=== PATIENT | male | born 1940 | race African-American/Black ===

== ENCOUNTER 2018-08-21 18:40 | Inpatient (IN) | payer OTHER ==
[2018-08-21 19:26] LABS: Absolute Lymphocytes (CBC) 2.1 K/uL (0.7-4.9); Absolute Monocytes 0.6 K/uL (0.1-1.3); Absolute Neutrophil 5.6 K/uL (1.8-8.0); Basophils % 0.4 % (0-1.3); Hematocrit 38.2 % (39.6-49.0); Lymphocytes % 24.8 % (15.3-44.8); MPV 7.7 fL (7.6-11.3); Monocytes % 7.1 % (3.3-12.3); RBC Red Blood Cell Count 4.33 M/uL (4.33-5.43)
[2018-08-21 19:45] LABS: ALT/SGPT 19 U/L (12-78); AST/SGOT 18 U/L (15-37); Albumin 3.2 g/dL (3.4-5.0); Alkaline Phosphatase 70 U/L (45-117); BUN Blood Urea Nitrogen 14 mg/dL (7-18); Bicarbonate 28 mmol/L (21-32); Bilirubin Direct < 0.1 mg/dL (0-0.2); Bilirubin Total 0.2 mg/dL (0.2-1.0); Glucose Level 73 mg/dL (74-106); Magnesium 2.6 mg/dL (1.8-2.4); NT PRO-BNP 53 pg/mL (<450); Potassium 3.9 mmol/L (3.5-5.1); Protein, Total 7.3 g/dL (6.4-8.2); Sodium Level 145 mmol/L (136-145); Troponin (Emerg Dept Use Only) < 0.02 ng/mL (0.0-0.045)
--- NOTE | 2018-08-21 19:56 | RAD REPORT ---
EXAM DESCRIPTION: Mandie Single View08/21/2018 7:15 pm CLINICAL HISTORY: Chest pain COMPARISON: 2009 FINDINGS: A few areas of subsegmental atelectasis are present within the lung bases. Upper lobes ap pear clear The heart is normal size
[2018-08-21] MEDS ORDERED: NA CHLORIDE 0.9% 500 ML ONE ×2 (21:05→22:24)
[2018-08-21 23:19] LABS: Amylase Level 125 U/L (25-115); Lipase 1150 U/L (73-393); Troponin (Emerg Dept Use Only) < 0.02 ng/mL (0.0-0.045)
--- NOTE | 2018-08-22 00:10 | ER ---
Nurse's Notes [facility] Name: Carloz Hughes Age: 78 yrs Sex: Male : 1940 Arrival Date: 08/21/2018 Time: 18:44 Bed 25 Private MD: Diagnosis: Acute pancreatitis Presentation: 08/21 18:47 Presenting complaint: Patient states: epigastric pain after eating that began 3-4 days aa5 ago. Pt states "I've been taking milk of magnesia and it helps for a few hours but the pain comes back". Transition of care: patient was not received from another setting of care. Onset of symptoms was August 2018. Risk Assessment: Do you want to hurt yourself or someone else? Patient reports no desire to harm self or others. Initial Sepsis Screen: Does the patient meet any 2 criteria? No. Patient's initial sepsis screen is negative. Does the patient have a suspected source of infection? No. Patient's initial sepsis screen is negative. Care prior to arrival: None. 18:47 Method Of Arrival: Ambulatory aa5 18:47 Acuity: EWA 3 aa5 Historical: - Allergies: 18:53 NSAIDS; aa5 - Home Meds: 18:53 lisinopril-hydrochlorothiazide oral oral [Active]; insulin [Active]; aa5 - PMHx: 18:53 Diabetes - IDDM; Hypertension; aa5 - PSHx: 18:53 Cholecystectomy; aa5 - Immunization history:: Adult Immunizations unknown. - Social history:: Smoking status: Patient/guardian denies using tobacco. - Ebola Screening: : No symptoms or risks identified at this time. Screenin:21 Abuse screen: Denies threats or abuse. Denies injuries from another. Nutritional mg2 screening: No deficits noted. Tuberculosis screening: No symptoms or risk factors identified. Fall Risk IV access (20 points). Assessment: 19:20 General: Appears in no apparent distress. comfortable, Behavior is calm, cooperative, ca1 appropriate for age. Pain: Complains of pain in epigastric area Pain does not radiate. Pain currently is 1 out of 10 on a pain scale. at worst was 3 out of 10 on a pain scale. Quality of pain is described as throbbing, Pain began 2-3 days ago. Is intermittent. Pain: Aggravated by eating. Neuro: Level of Consciousness is awake, alert, obeys commands, Oriented to person, place, time, situation. Cardiovascular: Heart tones S1 S2 present Capillary refill < 3 seconds Patient's skin is warm and dry. Rhythm is sinus rhythm. Respiratory: Airway is patent Respiratory effort is even, unlabored, Respiratory pattern is regular, symmetrical, Breath sounds are clear bilaterally. GI: Abdomen is round non-distended, Bowel sounds present X 4 quads. Abd is soft and non tender X 4 quads. : No deficits noted. No signs and/or symptoms were reported regarding the genitourinary system. EENT: No deficits noted. No signs and/or symptoms were reported regarding the EENT system. Derm: Skin is intact, is healthy with good turgor, Skin is pink, warm \\T\\ dry. Musculoskeletal: Circulation, motion, and sensation intact. Capillary refill < 3 seconds, Range of motion: intact in all extremities. 20:25 Reassessment: Patient appears in no apparent distress at this time. Patient and/or ca1 family updated on plan of care and expected duration. Pain level reassessed. Patient is alert, oriented x 3, equal unlabored respirations, skin warm/dry/pink. 21:30 Tenecteplase (TNKase) screening: Indications for treatment:. Reassessment: Patient ca1 appears in no apparent distress at this time. Patient and/or family updated on plan of care and expected duration. Pain level reassessed. Patient is alert, oriented x 3, equal unlabored respirations, skin warm/dry/pink. for repeat Trop at 2200. 22:35 Reassessment: Patient appears in no apparent distress at this time. Patient is alert, ca1 oriented x 3, equal unlabored respirations, skin warm/dry/pink. 23:45 Reassessment: Patient appears in no apparent distress at this time. Patient is alert, ca1 oriented x 3, equal unlabored respirations, skin warm/dry/pink. Pt instructed on NPO. Verbalized understanding of instructions. 08/22 00:35 Reassessment: Patient appears in no apparent distress at this time. Patient is alert, ca1 oriented x 3, equal unlabored respirations, skin warm/dry/pink. Awaiting Room Assignment. 00:43 Reassessment: Called 2nd floor for report. Nurse in pt's room. Will call back. ca1 00:51 Reassessment: Pt on phone. NO C/O of pain/N/V. VS stable. A and Ox4. ca1 Vital Signs: 08/21 18:53 BP 150 / 77; Pulse 83; Resp 16 S; Temp 97.4(TE); Pulse Ox 99% on R/A; Weight 114.31 kg aa5 (R); Height 5 ft. 7 in. (170.18 cm) (R); Pain 03/19; 19:20 BP 123 / 62 RA (auto/lg); Pulse 71; Resp 18 S; Temp 99.0; Pulse Ox 96% on R/A; Pain jp3 03/19; 20:25 BP 116 / 65; Pulse 65; Resp 20; Temp 98(O); Pulse Ox 97% on R/A; ca1 21:30 BP 125 / 68; Pulse 63; Resp 16 S; Pulse Ox 97% on R/A; ca1 22:35 BP 125 / 69; Pulse 69; Resp 16; Temp 98(O); Pulse Ox 99% on R/A; ca1 23:46 BP 134 / 79; Pulse 72; Resp 16 S; Temp 98(O); Pulse Ox 98% on R/A; ca1 08/22 00:35 BP 149 / 78; Pulse 65; Resp 16 S; Temp 98(O); Pulse Ox 98% on R/A; ca1 00:51 BP 128 / 73; Pulse 65; Resp 19; Temp 98(O); Pulse Ox 100% on R/A; ca1 08/21 18:53 Body Mass Index 39.47 (114.31 kg, 170.18 cm) aa5 ED Course: 08/21 18:44 Patient arrived in ED. mr 18:47 Arm band placed on. aa5 18:50 Triage completed. aa5 19:15 EKG done, by ED staff, reviewed by Claude Herrera MD. jp3 19:16 XRAY Chest (1 view) In Process Unspecified. EDMS 19:20 Placed in gown. Bed in low position. Call light in reach. Side rails up X 1. Side rails jp3 up X2. 19:20 traffic monitor specialist on. Pulse ox on. NIBP on. jp3 19:21 Patient maintains SpO2 saturation greater than 95% on room air. jp3 19:21 No provider procedures requiring assistance completed. Inserted saline lock: 20 gauge mg2 in left forearm, using aseptic technique. Blood collected. Patient maintains SpO2 saturation greater than 95% on room air. 19:24 Ana Gonzalez, RN is Primary Nurse. ca1 19:24 Troponin (emerg Dept Use Only) Sent. jp3 19:24 PT-INR Sent. jp3 19:25 NT PRO-BNP Sent. jp3 19:25 Magnesium Sent. jp3 19:25 LFT's Sent. jp3 19:25 CBC with Diff Sent. jp3 19:25 Basic Metabolic Panel Sent. jp3 19:25 CBC with Automated Diff Sent. jp3 19:25 Basic Metabolic Panel Sent. jp3 20:18 [facility]C [facility]. snw 20:18 Claude Herrera MD is Attending Physician. snw 21:07 CT Stone Protocol In Process Unspecified. EDMS 22:15 Repeat lab(s) drawn. by wa, sent to lab. jp3 22:20 Amylase, Serum Sent. jp3 22:20 Lipase Sent. jp3 22:20 Troponin (emerg Dept Use Only) Sent. jp3 23:47 Ana Gonzalez, RN is Primary Nurse. ca1 08/22 00:08 Sendy Lew MD is Hospitalizing Provider. snw 00:36 Patient admitted, IV remains in place. ca1 Administered Medications: 08/21 21:07 Drug: NS 0.9% 500 ml Route: IV; Rate: bolus; Site: left forearm; mg2 22:07 Follow up: Response: No adverse reaction; IV Status: Completed infusion ca1 22:10 Drug: NS 0.9% 500 ml Volume: 500 ml; Route: IV; Rate: 1 bolus; Site: left forearm; ca1 23:54 Follow up: Response: No adverse reaction; IV Status: Completed infusion ca1 Outcome: 08/22 00:09 Decision to Hospitalize by Provider. snw 00:50 Admitted to Med/surg accompanied by nurse, via wheelchair, room 223, with chart, Report ca1 called to Mary Jane Caldwell RN 00:50 Condition: stable 00:50 Instructed on the need for admit. 01:00 Patient left the ED. ca1 Signatures: Dispatcher [employer] EDMS Gem Loza FNP-C COMPATIBILITY TEST ENGINEER-Bree Laura Amaro Audri RN RN aa5 Cruz Machuca RN RN mg2 Deacon Kathleen jp3 Ana Gonzalez RN RN ca1 Corrections: (The following items were deleted from the chart) 00:41 08/21 23:45 Reassessment: Patient appears in no apparent distress at this time. Patient ca1 is alert, oriented x 3, equal unlabored respirations, skin warm/dry/pink. ca1
--- NOTE | 2018-08-22 00:10 | EDPHYS ---
Physician Documentation [facility] Name: Carloz Hughes Age: 78 yrs Sex: Male : 1940 Arrival Date: 08/21/2018 Time: 18:44 Bed 25 Private MD: ED Physician Claude Herrera HPI: 08/21 22:16 This 78 yrs old Black Male presents to ER via Ambulatory with complaints of Chest Pain. snw 22:16 The patient presents with abdominal pain in the epigastric area. Onset: The snw symptoms/episode began/occurred suddenly. The symptoms do not radiate. Associated signs and symptoms: Pertinent positives: "indigestion" alternating constipation and diarrhea. The symptoms are described as crampy. Severity of pain: At its worst the pain was moderate. The patient has not experienced similar symptoms in the past. The patient has not recently seen a physician. Historical: - Allergies: 18:53 NSAIDS; aa5 - Home Meds: 18:53 lisinopril-hydrochlorothiazide oral oral [Active]; insulin [Active]; aa5 - PMHx: 18:53 Diabetes - IDDM; Hypertension; aa5 - PSHx: 18:53 Cholecystectomy; aa5 - Immunization history:: Adult Immunizations unknown. - Social history:: Smoking status: Patient/guardian denies using tobacco. - Ebola Screening: : No symptoms or risks identified at this time. ROS: 22:15 Constitutional: Negative for fever, chills, and weight loss, Eyes: Negative for injury, snw pain, redness, and discharge, ENT: Negative for injury, pain, and discharge, Neck: Negative for injury, pain, and swelling, Cardiovascular: Negative for chest pain, palpitations, and edema, Respiratory: Negative for shortness of breath, cough, wheezing, and pleuritic chest pain, Back: Negative for injury and pain, : Negative for injury, bleeding, discharge, and swelling, MS/Extremity: Negative for injury and deformity, Skin: Negative for injury, rash, and discoloration, Neuro: Negative for headache, weakness, numbness, tingling, and seizure. 22:15 Abdomen/GI: Positive for abdominal pain, diarrhea, constipation, of the epigastric area, Negative for nausea, vomiting, dysphagia, hematemesis, black/tarry stool, rectal bleeding. Exam: 22:15 Constitutional: This is a well developed, well nourished patient who is awake, alert, snw and in no acute distress. Head/Face: Normocephalic, atraumatic. Eyes: Pupils equal round and reactive to light, extra-ocular motions intact. Lids and lashes normal. Conjunctiva and sclera are non-icteric and not injected. Cornea within normal limits. Periorbital areas with no swelling, redness, or edema. ENT: Nares patent. No nasal discharge, no septal abnormalities noted. Tympanic membranes are normal and external auditory canals are clear. Oropharynx with no redness, swelling, or masses, exudates, or evidence of obstruction, uvula midline. Mucous membranes moist. Neck: Trachea midline, no thyromegaly or masses palpated, and no cervical lymphadenopathy. Supple, full range of motion without nuchal rigidity, or vertebral point tenderness. No Meningismus. Chest/axilla: Normal chest wall appearance and motion. Nontender with no deformity. No lesions are appreciated. Cardiovascular: Regular rate and rhythm with a normal S1 and S2. No gallops, murmurs, or rubs. Normal PMI, no JVD. No pulse deficits. Respiratory: Lungs have equal breath sounds bilaterally, clear to auscultation and percussion. No rales, rhonchi or wheezes noted. No increased work of breathing, no retractions or nasal flaring. Back: No spinal tenderness. No costovertebral tenderness. Full range of motion. Skin: Warm, dry with normal turgor. Normal color with no rashes, no lesions, and no evidence of cellulitis. MS/ Extremity: Pulses equal, no cyanosis. Neurovascular intact. Full, normal range of motion. Neuro: Awake and alert, GCS 15, oriented to person, place, time, and situation. Cranial nerves II-XII grossly intact. Motor strength 5/5 in all extremities. Sensory grossly intact. Cerebellar exam normal. Normal gait. Psych: Awake, alert, with orientation to person, place and time. Behavior, mood, and affect are within normal limits. 22:15 Abdomen/GI: Inspection: abdomen appears normal, Bowel sounds: normal, in all quadrants, Palpation: abdomen is soft and non-tender. Vital Signs: 18:53 BP 150 / 77; Pulse 83; Resp 16 S; Temp 97.4(TE); Pulse Ox 99% on R/A; Weight 114.31 kg aa5 (R); Height 5 ft. 7 in. (170.18 cm) (R); Pain /; 19:20 BP 123 / 62 RA (auto/lg); Pulse 71; Resp 18 S; Temp 99.0; Pulse Ox 96% on R/A; Pain jp3 03/19; 20:25 BP 116 / 65; Pulse 65; Resp 20; Temp 98(O); Pulse Ox 97% on R/A; ca1 21:30 BP 125 / 68; Pulse 63; Resp 16 S; Pulse Ox 97% on R/A; ca1 22:35 BP 125 / 69; Pulse 69; Resp 16; Temp 98(O); Pulse Ox 99% on R/A; ca1 23:46 BP 134 / 79; Pulse 72; Resp 16 S; Temp 98(O); Pulse Ox 98% on R/A; ca1 08/22 00:35 BP 149 / 78; Pulse 65; Resp 16 S; Temp 98(O); Pulse Ox 98% on R/A; ca1 00:51 BP 128 / 73; Pulse 65; Resp 19; Temp 98(O); Pulse Ox 100% on R/A; ca1 08/21 18:53 Body Mass Index 39.47 (114.31 kg, 170.18 cm) aa5 MDM: 08/21 20:19 Patient medically screened. [facility] 08/22 00:09 Data reviewed: vital signs, nurses notes. Data interpreted: Pulse oximetry: on room air snw is 98 %. Interpretation: normal. Counseling: I had a detailed discussion with the patient and/or guardian regarding: the historical points, exam findings, and any diagnostic results supporting the discharge/admit diagnosis, lab results, radiology results, the need for further work-up and treatment in the hospital. Physician consultation: Sendy Lew MD was called at 23:00, was contacted at 23:00, regarding admission, to the telemetry unit. 08/21 18:56 Order name: Basic Metabolic Panel snw 08/21 18:56 Order name: CBC with Diff snw 08/21 18:56 Order name: LFT's; Complete Time: 20:20 snw 08/21 18:56 Order name: Magnesium; Complete Time: 20:20 snw 08/21 18:56 Order name: NT PRO-BNP; Complete Time: 20:20 snw 08/21 18:56 Order name: PT-INR; Complete Time: 20:20 snw 08/21 18:56 Order name: Troponin (emerg Dept Use Only); Complete Time: 20:20 snw 08/21 18:56 Order name: XRAY Chest (1 view); Complete Time: 20:20 snw 08/21 18:57 Order name: Basic Metabolic Panel; Complete Time: 20:20 EDMS 08/21 18:57 Order name: CBC with Automated Diff; Complete Time: 20:20 EDMS 08/21 20:37 Order name: CT Stone Protocol snw 08/21 22:04 Order name: Lipase; Complete Time: 23:25 snw 08/21 22:04 Order name: Troponin (emerg Dept Use Only); Complete Time: 23:25 snw 08/21 22:04 Order name: Amylase, Serum; Complete Time: 23:25 snw 08/21 18:56 Order name: EKG; Complete Time: 18:59 w 08/21 18:56 Order name: Cardiac monitoring; Complete Time: 19:23 snw 08/21 18:56 Order name: EKG - Nurse/Tech; Complete Time: 19:23 w 08/21 18:56 Order name: IV Saline Lock; Complete Time: 19:23 w 08/21 18:56 Order name: Labs collected and sent; Complete Time: 19:23 snw 08/21 18:56 Order name: O2 Per Protocol; Complete Time: 19:23 w 08/21 18:56 Order name: O2 Sat Monitoring; Complete Time: 19:23 snw 08/21 20:38 Order name: Repeat Cardiac Enzymes at: 2200; Complete Time: 22:20 snw 08/21 22:06 Order name: EKG Strip; Complete Time: 22:26 snw Administered Medications: 08/21 21:07 Drug: NS 0.9% 500 ml Route: IV; Rate: bolus; Site: left forearm; mg2 22:07 Follow up: Response: No adverse reaction; IV Status: Completed infusion ca1 22:10 Drug: NS 0.9% 500 ml Volume: 500 ml; Route: IV; Rate: 1 bolus; Site: left forearm; ca1 23:54 Follow up: Response: No adverse reaction; IV Status: Completed infusion ca1 Disposition: 08/22/18 00:09 Hospitalization ordered by Sendy Lew for Inpatient Admission. Preliminary diagnosis is Acute pancreatitis. - Bed requested for Telemetry/MedSurg (Inpatient). - Status is Inpatient Admission. ca1 - Condition is Stable. - Problem is new. - Symptoms are unchanged. UTI on Admission? No Addendum: 08/24/2018 08:24 Co-signature as Attending Physician, Claude Herrera MD I agree with the assessment and c yun plan of care. Signatures: Dispatcher [employer] EDNV Claude Herrera MD MD cha Therrien, Shelly, DRUG ABUSE WORKER-C DRUG ABUSE WORKER-Csnw Shagufta Mills, RN RN aa5 Fabiola Funez, RN RN cg Cruz Machuca, RN RN mg2 Ana Gonzalez RN RN ca1 Corrections: (The following items were deleted from the chart) 08/21 22:16 22:15 Abdomen/GI: Positive for abdominal pain, diarrhea, constipation, Negative for snw nausea, vomiting, dysphagia, hematemesis, black/tarry stool, rectal bleeding, snw 08/22 00:34 00:09 Hospitalization Ordered by Sendy Lew MD for Inpatient Admission. Preliminary cg diagnosis is Acute pancreatitis. Bed requested for Telemetry/MedSurg (Inpatient). Status is Inpatient Admission. Condition is Stable. Problem is new. Symptoms are unchanged. UTI on Admission? No. snw 01:00 00:34 08/22/2018 00:09 Hospitalization Ordered by Senyd Lew MD for Inpatient ca1 Admission. Preliminary diagnosis is Acute pancreatitis. Bed requested for Telemetry/MedSurg (Inpatient). Status is Inpatient Admission. Condition is Stable. Problem is new. Symptoms are unchanged. UTI on Admission? No. cg
--- NOTE | 2018-08-22 00:36 | P.HP ---
Certification for Inpatient Patient admitted to: Inpatient With expected LOS: >2 Midnights Practitioner: I am a practitioner with admitting privileges, knowledge of patient current condition, hospital course, and medical plan of care. Services: Services provided to patient in accordance with Admission requirements found in Title 42 Section 412.3 of the Code of Federal Regulations Patient History Date of Service: 08/22/18 Reason for admission: abdominal pain, pancreatitis History of Present Illness: Mr Hughes is a 78 years old male with history of HTN, DM II insulin dependent, who start with abdominal pain about 2-3 days ago. The pain was localized in epigastric area, no radiated, 5/10 of intensity, worsening after eating. He denied nausea, vomiting, fever or chills. Lab work remarkable for normal WBC count, elevated creatinine level 1.7, elevated lipase and amylase. CT abd/ pelvis consitent with acute pancreatitis. Home medications list reviewed: Yes - Past Medical/Surgical History -: DM II -: HTN -: Cholecystectomy - Family History Family History: Reviewed- Non-Contributory - Social History Smoking Status: Never smoker Alcohol use: No CD- Drugs: No Place of Residence: Home Review of Systems 10-point ROS is otherwise unremarkable Physical Examination - Physical Exam General: Alert, In no apparent distress HEENT: Atraumatic, PERRLA, Mucous membr. moist/pink, EOMI, Sclerae nonicteric Neck: Supple, 2+ carotid pulse no bruit, No LAD, Without JVD or thyroid abnormality Respiratory: Clear to auscultation bilaterally, Normal air movement Cardiovascular: Regular rate/rhythm, Normal S1 S2 Gastrointestinal: Normal bowel sounds, Non-distended, No guarding, Tenderness ( epigastric area) Musculoskeletal: No tenderness Integumentary: No rashes Neurological: Normal speech, Normal strength at 5/5 x4 extr, Normal tone, Normal affect Lymphatics: No axilla or inguinal lymphadenopathy - Studies Laboratory Data (last 24 hrs) 08/21/18 22:10: Amylase 125 H, Lipase 1150 H 08/21/18 19:20: PT 11.8, INR 1.00 08/21/18 19:20: WBC 8.4, Hgb 12.8 L, Hct 38.2 L, Plt Count 211 08/21/18 19:20: Sodium 145, Potassium 3.9, BUN 14, Creatinine 1.49 H, Glucose 73 L, Magnesium 2.6 H, Total Bilirubin 0.2, AST 18, ALT 19, Alkaline Phosphatase 70 Assessment and Plan - Problems (Diagnosis) (1) Acute pancreatitis Current Visit: Yes Status: Acute Qualifiers: Pancreatitis type: unspecified pancreatitis type Acute pancreatitis complication: unspecified Qualified Code(s): K85.90 - Acute pancreatitis without necrosis or infection, unspecified (2) Diabetes mellitus Current Visit: Yes Status: Acute Qualifiers: Diabetes mellitus type: type 2 Diabetes mellitus terminal gauger insulin use: with terminal gauger use Diabetes mellitus complication status: with other specified complication Qualified Code(s): E11.69 - Type 2 diabetes mellitus with other specified complication; Z79.4 - computer terminal operator (current) use of insulin (3) HTN (hypertension) Current Visit: Yes Status: Acute Qualifiers: Hypertension type: essential hypertension Qualified Code(s): I10 - Essential (primary) hypertension - Plan The patient will be admitted to the hospital due to acute pancreatitis. Will order abd US, lipid panel. Keep the patient NPO, start IV fluids, and symptomatic medication for pain. SSI for BS control. Check HgbA1c. - Advance Directives Does patient have a Living Will: No Does patient have a Durable POA for Healthcare: No - Code Status/Comfort Care Code Status Assessed: Yes Code Status: Full Code
[2018-08-22] MEDS ORDERED: KCL 20 MEQ/100 mL IVPB 20 MEQ/100 ML BAG IV SCH (02:00)
[2018-08-22] MEDS ORDERED: MORPHINE 2 MG/ML SYR IV PRN (02:05)
[2018-08-22] MEDS ORDERED: ONDANSETRON 4 MG/2 ML VIAL IV PRN (02:05)
[2018-08-22] MEDS: NA CHLORIDE 0.9% 1,000 ML IV SCH ×4 (02:22→20:50)
[2018-08-22 05:23] LABS: Urine Appearance CLEAR; Urine Bilirubin NEGATIVE (NEG); Urine Blood NEGATIVE (NEG); Urine Color YELLOW; Urine Glucose NEGATIVE (NEG); Urine Protein NEGATIVE (NEG); Urine Urobilinogen 0.2 mg/dL (0.2-1.0)
[2018-08-22 05:31] LABS: Urine Microscopic Reflex NO UMIC
[2018-08-22] MEDS: INSULIN -REGULAR HUMAN 50 UNIT/0.5 ML ML SQ SCH ×3 (06:00→16:41)
--- NOTE | 2018-08-22 08:07 | EKG ---
Test Date: 2018-08-21 Test Time: 22:26:44 Digital Pre Press Operator: KATY MEASUREMENT RESULTS: Intervals: Rate: 60 FL: 194 QRSD: 140 QT: 438 QTc: 438 [place]: P: 50 FL: 194 QRS: -27 T: -5 INTERPRETIVE STATEMENTS: Sinus rhythm with premature supraventricular complexes Right bundle branch block Abnormal ECG Compared to ECG 08/21/2018 19:10:48 Atrial premature complex(es) now present Left-axis deviation no longer present Electronically Signed On 08-22-18 08:06:34 CDT by Dominic Hutson
--- NOTE | 2018-08-22 08:08 | EKG ---
Test Date: 2018-08-21 Test Time: 19:10:48 Ekg/Ecg Technician: GHASSAN MEASUREMENT RESULTS: Intervals: Rate: 72 ND: 186 QRSD: 142 QT: 414 QTc: 453 [place]: P: 43 ND: 186 QRS: -38 T: -7 INTERPRETIVE STATEMENTS: Normal sinus rhythm Left axis deviation Right bundle branch block Abnormal ECG Compared to ECG 01/11/2008 05:53:41 Left-axis deviation now present Electronically Signed On 08-22-18 08:07:04 CDT by Dominic Hutson
[2018-08-22] MEDS: ENOXAPARIN 40 MG/0.4 ML SQ SCH (08:51)
--- NOTE | 2018-08-22 14:39 | CON ---
Date of Consultation: 08/22/2018 Additional Consulting Physician: Dr. Marianela Slater Reason For Consultation: Elevated BUN and creatinine, fluid management. History Of Present Illness: This is a pleasant 78-year-old black gentleman with significant past med ical history of diabetes for the last 20 years, complicated with neuropathy, no retinopathy, hyperten gabriela since 1999, hyperlipidemia. The patient does not have any coronary artery disease. No arthriti s. The patient known to have chronic kidney disease according to him couple of few years ago. [facility] follow up with collection support specialist. The patient came to the hospital because of localized epigastric pain without any radiation, aggravated with food with nausea without any vomi ting. No diarrhea. No other GI symptoms. On presentation to the hospital, the patient found to have elevated BUN and creatinine. For that keon son, we have been consulted. The patient denied taking any nonsteroidal. No IV contrast. Lab showe d that he has also elevated lipase with pancreatitis. Past Medical History: Include: 1.Diabetes complicated with neuropathy. 2.Hypertension. 3.Chronic kidney disease, unknown baseline. Family History: Positive for hypertension. Social History: Denies smoking, denies drinking, denies drugs abuse. Home Medications: Include hydrochlorothiazide 25 mg daily, lisinopril 20 mg daily, Flomax, and prava statin. Past Surgical History: None contribute. Review of Systems: Head and Neck: No red eye. No ear pain. GI: Has epigastric pain, has nausea. No vomiting. : No polyuria, no dysuria, no hematuria. COMMUNITY PROGRAM ASSISTANT: Not applicable. Respiratory: No shortness of breath. Cardiovascular: He has epigastric pain. Endocrine: No polydipsia. Skin: No rash. Neurology: Has neuropathy. Musculoskeletal: No joint pain. Physical Examination: Vital Signs: When I saw the patient, the patient lying in bed comfortable. Blood pressure 158/78, p ulse of 69, afebrile. Chest: Clear to auscultation. Heart: S1 and S2, regular. Abdomen: Soft and nontender. Extremities: No edema. Neurological: Alert and oriented x3. No focal. Laboratory Data: Sodium 145, potassium 3.9, bicarb 28, BUN 14, creatinine 1.4, GFR of 55. LFT withi n normal limit. Lipase 1150. WBC 8.4, H and H 12.8/38.2, platelets 211. Chest x-ray marginal cardiomegaly with congestion. CT abdomen and pelvis, still pending. Assessment And Plan: 1.Chronic kidney disease with acute kidney injury, mostly secondary to prerenal, secondary to the ga strointestinal loss superimposed with ROGER inhibitor and hydrochlorothiazide, nonoliguric. No hyperka lemia. No acidosis. I agree with holding all blood pressure medication for the time being, especial ly ROGER inhibitor and hydrochlorothiazide in the presence of acute kidney injury. I am going to go ah ead and send for full workup. Mostly his chronic kidney disease secondary to diabetes and hypertensi on. With the presence of anemia, we will need to rule out light chain disease, doubt the patient has any component of autoimmune disease, but we will send for the basic workup to rule it out. 2.Hypertension with the presence of acute kidney injury. Continue holding blood pressure medication , ROGER inhibitor and ARB. We will monitor. 3.Anemia of chronic kidney disease with the presence of renal failure. Light chain disease need to be ruled out. We will send for serum protein electrophoresis. 4.Hypokalemia. We will supplement. 5.Pancreatitis. Continue hydration. Follow up with primary. Thank you, Dr. Bear for allowing us to DICTATION ENDS HERE ENRIQUE Voice ID: [id number] Report ID: [id number]
--- NOTE | 2018-08-22 14:58 | P.PN ---
Date of Service: 08/22/18 pt was seen earlier am by my colleague DR longo 78 y/o man with PMHx of HTn,DM presented to ER with abdominal pain and was admitted for acute pancreatitis pt seen and examined labs reviewed noted elevated BUN/CR ,nephrology consulted pt was still having abd pain ,keep NPO for now IVF hydration
--- NOTE | 2018-08-22 16:13 | RAD REPORT ---
EXAM DESCRIPTION: US - Abdomen Exam Complete - 08/22/2018 3:11 pm CLINICAL HISTORY: Abdominal pain. evaluate biliare tree, R/O stones COMPARISON: No comparisons FINDINGS: The liver is normal in size, shape and echotexture. No focal liver lesions or intrahepatic biliary dilatation is seen. Cholecystectomy. Common bile duct is normal in caliber measuring 6 mm. Both kidneys are normal in size, shape and echotexture. Benign 15 mm right renal cyst. No hydronephro sis, focal lesion of concern or perinephric fluid. The spleen is normal in size measuring 8 centimeters. The pancreas and aorta are obscured by bowel gas. The visualized aspects of the IVC are grossly normal. IMPRESSION: Unremarkable study except for limited assessment of the pancreas and aorta due to bowel gas. Cholecystectomy.
[2018-08-22 17:31] LABS: Absolute Lymphocytes (CBC) 1.7 K/uL (0.7-4.9); Absolute Monocytes 0.5 K/uL (0.1-1.3); Absolute Neutrophil 4.7 K/uL (1.8-8.0); Basophils % 0.1 % (0-1.3); Eosinophils % 1.4 % (0-4.4); Lymphocytes % 23.6 % (15.3-44.8); MPV 8.1 fL (7.6-11.3); Monocytes % 7.3 % (3.3-12.3); RBC Red Blood Cell Count 4.22 M/uL (4.33-5.43)
[2018-08-22 17:41] LABS: Potassium 4.3 mmol/L (3.5-5.1)
[2018-08-23 05:36] LABS: Absolute Lymphocytes (CBC) 1.4 K/uL (0.7-4.9); Absolute Monocytes 0.4 K/uL (0.1-1.3); Absolute Neutrophil 4.2 K/uL (1.8-8.0); Basophils % 0.2 % (0-1.3); Eosinophils % 1.1 % (0-4.4); Hematocrit 35.8 % (39.6-49.0); Lymphocytes % 23.3 % (15.3-44.8); MPV 7.8 fL (7.6-11.3); Monocytes % 6.8 % (3.3-12.3); RBC Red Blood Cell Count 4.08 M/uL (4.33-5.43)
[2018-08-23] MEDS: INSULIN -REGULAR HUMAN 50 UNIT/0.5 ML ML SQ SCH ×3 (06:00→12:00)
[2018-08-23 06:18] LABS: Albumin 2.8 g/dL (3.4-5.0); Folic Acid, (Folate) 18.7 ng/mL (3.1-17.5); Phosphorus 2.8 mg/dL (2.5-4.9); Potassium 4.3 mmol/L (3.5-5.1); Uric Acid 6.7 mg/dL (3.5-7.2)
[2018-08-23] MEDS: NA CHLORIDE 0.9% 1,000 ML IV SCH (09:22)
[2018-08-23] MEDS: ENOXAPARIN 40 MG/0.4 ML SQ SCH (09:22)
[2018-08-23] MEDS ORDERED: HOME MED 1 EA UNK (Hydroxyzine Pamoate [Hydroxyzine Pamoate] 25 MG) PO PRN (14:45)
[2018-08-23] MEDS ORDERED: hydrOXYzine HCl 25 MG TAB PO PRN (15:43)
[2018-08-23 16:22] LABS: Potassium 4.1 mmol/L (3.5-5.1)
[2018-08-23 16:26] LABS: Hematocrit 36.6 % (39.6-49.0); RBC Red Blood Cell Count 4.19 M/uL (4.33-5.43)
[2018-08-23 16:27] LABS: Absolute Lymphocytes (CBC) 1.4 K/uL (0.7-4.9); Absolute Monocytes 0.4 K/uL (0.1-1.3); Absolute Neutrophil 3.9 K/uL (1.8-8.0); Basophils % 0.2 % (0-1.3); Lymphocytes % 23.8 % (15.3-44.8); Monocytes % 6.4 % (3.3-12.3)
[2018-08-23] MEDS ORDERED: CARVEDILOL 3.125 MG TAB PO SCH (18:00)
--- NOTE | 2018-08-23 18:03 | PN ---
Date of Progress Note: 08/23/2018 Subjective: The patient feeling much better. No nausea. No vomiting. Physical Examination: Vital Signs: Blood pressure 189/86, pulse of 70. Chest: Clear to auscultation. Heart: S1, S2. Regular. Abdomen: Soft, nontender. Extremities: No edema. Laboratory Data: WBC 6.1, H and H 12/35.8. Sodium 145, potassium 4.3, bicarb 26, BUN 10, creatinine of 1.3, GFR of 67. Urinalysis negative for infection. Assessment And Plan: 1.Acute kidney injury secondary to prerenal, recovered, resolved. 2.Hypertension, not controlled. I am going to go ahead and discontinue IV fluid and we will start t he patient on low dose of carvedilol. Case discussed with the patient, agreed on the plan. The donovan ent cleared from the renal standpoint for discharge planning to follow up in the office in 2-3 weeks with chemistry. ENRIQUE Voice ID: [id number] Report ID: [id number]
[2018-08-23] MEDS ORDERED: TAMSULOSIN 0.4 MG SR CAP PO SCH (21:00)
[2018-08-23] MEDS ORDERED: CHOLECALCIFEROL 400 UNIT PO SCH (21:00)
[2018-08-23] MEDS ORDERED: ATORVASTATIN 20 MG TAB PO SCH (21:00)
[2018-08-24 01:21] LABS: Rheumatoid Factor NEG (NEG)
[2018-08-24] MEDS ORDERED: HOME MED 1 EA UNK (Multivitamin [Multivitamins] 1 CAP) PO SCH (09:00)
[2018-08-24] MEDS ORDERED: MULTIVITAMIN TAB PO SCH (09:00)
[2018-08-24] MEDS ORDERED: INSULIN DETEMIR 35 UNIT PO SCH (09:00)
[2018-08-24] MEDS ORDERED: INSULIN GLARGINE 100 UNITS/ML SQ SCH (09:00)
[2018-08-24] MEDS ORDERED: ASPIRIN 81 MG CHEWABLE TABLET PO SCH (09:00)
--- NOTE | 2018-08-24 11:59 | RAD REPORT ---
EXAM DESCRIPTION: CT Abdomen and Pelvis Without Intravenous Contrast CLINICAL HISTORY: The patient is 78 years old and is Male; Constipation;Abd pain TECHNIQUE: Axial computed tomography images of the abdomen and pelvis without intravenous contrast. Sagittal and coronal reformatted images were created and reviewed. This CT exam was performed usi ng one or more of the following dose reduction techniques: automated exposure control, adjustment o f the mA and/or kV according to patient size, and/or use of iterative reconstruction technique. COMPARISON: No relevant prior studies available. FINDINGS: Lung bases: Unremarkable. No mass. No consolidation. ABDOMEN: Liver: Unremarkable. Gallbladder and bile ducts: Cholecystectomy No ductal dilation. Pancreas: Fullness of the pancreatic head with peripancreatic inflammatory changes and fluid con sistent with pancreatitis. No ductal dilation. Spleen: Unremarkable. No splenomegaly. Adrenals: Unremarkable. No mass. Kidneys and ureters: Unremarkable. No obstructing stones. No hydronephrosis. Stomach and bowel: Unremarkable. No obstruction. No mucosal thickening. PELVIS: Appendix: No findings to suggest acute appendicitis. Bladder: Unremarkable. No stones. Reproductive: Prominent prostate gland. ABDOMEN and PELVIS: Intraperitoneal space: Unremarkable. No free air. No significant fluid collection. Bones/joints: Mild spine degenerative changes. No acute fracture. No dislocation. Soft tissues: Unremarkable. Vasculature: Scattered atherosclerotic vascular calcifications. No abdominal aortic aneurysm. Lymph nodes: Unremarkable. No enlarged lymph nodes. IMPRESSION: Fullness of the pancreatic head with peripancreatic inflammatory changes and fluid consi stent with pancreatitis. Follow-up recommended to exclude underlying lesion. Electronically signed by: Darion Chandler MD 08/21/2018 9:15 PM CDT Due to temporary technical issues with the PACS/Fluency reporting system, reports are being signed by the in house radiologist as a courtesy to ensure prompt reporting. The interpreting radiologist is f ully responsible for the content of the report.
--- NOTE | 2018-08-24 23:14 | P.DS ---
Admission Date: 08/22/18 Discharge Date: 08/23/18 Disposition: ROUTINE DISCHARGE Discharge Condition: FAIR Reason for Admission: abdominal pain, pancreatitis Brief History of Present Illness: 78 years old male with history of HTN, DM II insulin dependent, who start with abdominal pain about 2-3 days ago. The pain was localized in epigastric area, no radiated, 5/10 of intensity, worsening after eating. He denied nausea, vomiting, fever or chills. Lab work remarkable for normal WBC count, elevated creatinine level 1.7, elevated lipase and amylase. CT abd/pelvis consitent with acute pancreatitis. Hospital Course: pt was admitted for acute pancreatitis and KAILEY pt was treated with IVF hydration and was kept NPO and pain meds prn for KAILEY nephrology was consulted and his losartan and HCTZ were held repeat labs on second day of admission showed marked improvement in BUN/CR and lipase pt denied abdominal pain or N/V and his diet was advanced to full liquid which he tolerated without any problenms pt needs to f/up with pcp for continuation of care nephrology f/up with repeat labs in 23 weeks Vital Signs/Physical Exam: Temp Pulse Resp BP Pulse Ox 97.1 F 65 20 152/66 H 98 08/23/18 16:00 08/23/18 17:16 08/23/18 16:00 08/23/18 17:16 08/23/18 16:00 General: Alert, In no apparent distress, Oriented x3 HEENT: Atraumatic, Normocephalic, PERRLA Neck: Supple Respiratory: Clear to auscultation bilaterally, Normal air movement Cardiovascular: No edema, Normal pulses, Regular rate/rhythm, Normal S1 S2 Gastrointestinal: Normal bowel sounds, Soft and benign, Non-distended Musculoskeletal: No clubbing, No swelling, No erythema Integumentary: No rashes, No breakdown Laboratory Data at Discharge: WBC 5.7 K/uL (4.3-10.9) 08/23/18 16:00 Hgb 12.1 g/dL (13.6-17.9) L 08/23/18 16:00 Hct 36.6 % (39.6-49.0) L 08/23/18 16:00 Plt Count 221 K/uL (152-406) 08/23/18 16:00 PT 11.8 SECONDS (9.5-12.5) 08/21/18 19:20 INR 1.00 08/21/18 19:20 Sodium 142 mmol/L (136-145) 08/23/18 15:51 Potassium 4.1 mmol/L (3.5-5.1) 08/23/18 15:51 BUN 12 mg/dL (7-18) 08/23/18 15:51 Creatinine 1.18 mg/dL (0.55-1.3) 08/23/18 15:51 Glucose 168 mg/dL (74-106) H 08/23/18 15:51 Uric Acid 6.7 mg/dL (3.5-7.2) 08/23/18 04:55 Phosphorus 2.8 mg/dL (2.5-4.9) 08/23/18 04:55 Magnesium 2.6 mg/dL (1.8-2.4) H 08/21/18 19:20 Total Bilirubin 0.2 mg/dL (0.2-1.0) 08/21/18 19:20 AST 18 U/L (15-37) 08/21/18 19:20 ALT 19 U/L (12-78) 08/21/18 19:20 Alkaline Phosphatase 70 U/L (45-117) 08/21/18 19:20 Triglycerides 94 mg/dL (<150) 08/23/18 04:55 Cholesterol 132 mg/dL (<200) 08/23/18 04:55 HDL Cholesterol 49 mg/dL (40-60) 08/23/18 04:55 Cholesterol/HDL Ratio 2.69 08/23/18 04:55 Amylase 125 U/L (25-115) H 08/21/18 22:10 Lipase 345 U/L (73-393) 08/23/18 04:55 Home Medications: Aspirin Chewable [Aspirin Chewable*] 81 mg PO DAILY 08/22/18 Atorvastatin Calcium [Lipitor*] 20 mg PO BEDTIME 08/22/18 Cholecalciferol (Vitamin D3) [Vitamin D3] 400 unit PO TID 08/22/18 Cinnamon Bark [Cinnamon] 100 mg PO DAILY 08/22/18 Insulin Detemir [Levemir] 35 units PO DAILY 08/22/18 Multivitamin [Multivitamins] 1 cap PO DAILY 08/22/18 Tamsulosin HCl [Flomax] 0.4 mg PO BEDTIME 08/22/18 hydrOXYzine pamoate [Hydroxyzine Pamoate] 25 mg PO Q8HP PRN 08/22/18 Carvedilol [Coreg*] 6.25 mg PO BID 6AM 6PM 15 Days #30 tab 08/23/18 New Medications: Carvedilol [Coreg*] 6.25 mg PO BID 6AM 6PM 15 Days #30 tab Patient Discharge Instructions: f/up with pcp for continuation of care. f/up with nephrology DR Webster in 1-2 weeks Diet: ADA Activity: Ad ruperto Followup: Bibi Webster MD [ACTIVE - CAN ADMIT] - 1-2 Weeks Bharat Sanders MD [Primary Care Provider] -
[2018-08-26 03:29] LABS: HBsAG Nonreactive (Nonreactive)
[2018-08-26 07:05] LABS: Hepatitis C Virus RNA (PCR)log <1.18 log IU/mL
[2018-08-26 17:24] LABS: HIV AG/AB 4TH GEN Non-reactive (Non-reactive)
[2018-08-26 23:47] LABS: Albumin, (SPE) 2.9 g/dL (3.8-4.8); Alpha-1-Globulins 0.3 g/dL (0.2-0.3); Alpha-2-Globulins 0.9 g/dL (0.5-0.9); Gamma Globulins 0.8 g/dL (0.8-1.7); INTERPRETATION REPORT
== END 2018-08-23 17:28 | disposition home or self-care (01) | DRG 682 ==
LOC: ER 18:40 → ERHOLD 08-22 00:22 → 2ND 08-22 00:56
PROVIDERS: ADMIT Internal Medicine; ATTEND Internal Medicine
DX: N17.9 Acute kidney failure, unspecified (principal); K85.90 Acute pancreatitis without necrosis or infection, unspecified; I12.9 Hypertensive chronic kidney disease with stage 1 through stage 4 chronic kidney disease, or unspecified chronic kidney disease; E11.22 Type 2 diabetes mellitus with diabetic chronic kidney disease; N18.9 Chronic kidney disease, unspecified; E87.6 Hypokalemia
CPT/HCPCS: 36415; 71045; 74176; 76377; 76700; 80048; 80061; 80069; 80076; 81003; 82150; 82607; 82652; 82746; 82962; 83036; 83520; 83540; 83690; 83735; 83880; 83970; 84165; 84466; 84484; 84550; 85025; 85044; 85610; 86021; 86038; 86160; 86225; 86317; 86430; 86704; 86706; 87340; 87389; 87522; 93005; 96360; 96361; 99285; J1650; J7030

== ENCOUNTER 2018-08-26 18:11 | Emergency (ER) | payer OTHER ==
[2018-08-26] MEDS ORDERED: D50W 25 GM/50 ML SYRINGE IV ONE (18:39)
--- NOTE | 2018-08-26 20:38 | ER ---
Nurse's Notes [facility] Name: Carloz Hughes Age: 78 yrs Sex: Male : 1940 Arrival Date: 08/26/2018 Time: 18:12 Bed 23 Private MD: Diagnosis: Hypoglycemia, unspecified Presentation: 08/26 18:27 Presenting complaint: Patient states: Low FSBS reading at home after taking normal aj amount of insulin today. Recent hospitalizations for pancreatitis. Transition of care: patient was not received from another setting of care. Onset of symptoms was August 26, 2018. Care prior to arrival: None. 18:27 Method Of Arrival: Ambulatory aj 18:27 Acuity: EWA 2 aj 18:46 Risk Assessment: Do you want to hurt yourself or someone else? Patient reports no mg2 desire to harm self or others. Initial Sepsis Screen: Does the patient meet any 2 criteria? No. Patient's initial sepsis screen is negative. Does the patient have a suspected source of infection? No. Patient's initial sepsis screen is negative. Triage Assessment: 18:28 General: Appears in no apparent distress. comfortable, Behavior is calm, cooperative, aj appropriate for age. Pain: Denies pain. Neuro: Level of Consciousness is awake, alert, obeys commands, Oriented to person, place, time, situation, Appropriate for age. Respiratory: Airway is patent Respiratory effort is even, unlabored, Respiratory pattern is regular, symmetrical. Derm: Skin is intact, is healthy with good turgor, Skin is pink, warm \T\ dry. normal. Historical: - Allergies: 18:28 NSAIDS; aj - Home Meds: 18:47 insulin [Active]; lisinopril-hydrochlorothiazide Oral [Active]; mg2 - PMHx: 18:47 Diabetes - IDDM; Hypertension; mg2 - Immunization history:: Flu vaccine status is unknown. - Social history:: Smoking status: unknown. - Ebola Screening: : No symptoms or risks identified at this time. Screenin:45 Abuse screen: Denies threats or abuse. Denies injuries from another. Nutritional mg2 screening: No deficits noted. Tuberculosis screening: No symptoms or risk factors identified. Fall Risk IV access (20 points). Assessment: 18:46 General: Appears in no apparent distress. comfortable, Behavior is calm, cooperative. mg2 Pain: Denies pain. Neuro: Level of Consciousness is awake, alert, obeys commands, Oriented to person, place, time, situation. Cardiovascular: Capillary refill < 3 seconds Patient's skin is warm and dry. Respiratory: Airway is patent Respiratory effort is even, unlabored, Respiratory pattern is regular, symmetrical. GI: No signs and/or symptoms were reported involving the gastrointestinal system. : No signs and/or symptoms were reported regarding the genitourinary system. EENT: No signs and/or symptoms were reported regarding the EENT system. Derm: Skin is intact, is healthy with good turgor, Skin is pink, warm \T\ dry. normal. Musculoskeletal: Circulation, motion, and sensation intact. Capillary refill < 3 seconds. Vital Signs: 18:28 BP 156 / 71; Pulse 80; Resp 18; Temp 98.4; Pulse Ox 97% on R/A; Weight 113.4 kg; Height aj 5 ft. 7 in. (170.18 cm); 19:59 BP 131 / 57; Pulse 70; Resp 18; Temp 98; Pulse Ox 100% on R/A; Pain 0/10; mg2 18:28 Body Mass Index 39.16 (113.40 kg, 170.18 cm) aj ED Course: 18:12 Patient arrived in ED. as 18:28 Triage completed. aj 18:28 Arm band placed on left wrist. Patient placed in an exam room. aj 18:38 Inserted saline lock: 20 gauge in right antecubital area, using aseptic technique. lt1 18:40 Cruz Machuca, RN is Primary Nurse. mg2 18:47 Patient has correct armband on for positive identification. Pulse ox on. NIBP on. Door mg2 closed. Warm blanket given. 18:50 Sesar Arnett PA is PHCP. jr8 18:50 Juan Carlos Becerra MD is Attending Physician. jr8 20:07 No provider procedures requiring assistance completed. mg2 20:54 IV discontinued, intact, bleeding controlled, No redness/swelling at site. Pressure mg2 dressing applied. Administered Medications: 18:30 Drug: D50W 50 ml Route: IVP; Site: right antecubital; aj 19:20 Follow up: Response: No adverse reaction; Marked relief of symptoms mg2 Point of Care Testing: Blood Glucose: 18:28 Blood Glucose: 43 mg/dL; aj 18:51 Blood Glucose: 166 mg/dL; lt1 20:41 Blood Glucose: 213 mg/dL; mg2 Ranges: Outcome: 20:38 Discharge ordered by MD. clarke 20:54 Discharged to home ambulatory, with family. mg2 20:54 Condition: stable 20:54 Discharge instructions given to patient, family, Instructed on discharge instructions, follow up and referral plans. Demonstrated understanding of instructions, follow-up care. 20:55 Patient left the ED. mg2 Signatures: Ambar Rousseau RN Judit Robertson Josh, PA PA jr8 Cruz Machuca RN RN mg2 Vandana Love [facility]
--- NOTE | 2018-08-26 20:38 | EDPHYS ---
Physician Documentation [facility] Name: Carloz Hughes Age: 78 yrs Sex: Male : 1940 Arrival Date: 08/26/2018 Time: 18:12 Bed 23 Private MD: ED Physician Juan Carlos Becerra HPI: 08/26 20:35 This 78 yrs old Black Male presents to ER via Ambulatory with complaints of Insulin jr8 Reaction. 20:35 Patient stated that he had not been eating as well today. Took normal dose of insulin. jr8 Later on started to feel cool and clammy. BGL had decreased significantly at home. Patient brought to ED at that time. Initial BGL of 43mg/dl. . Onset: The symptoms/episode began/occurred acutely. Severity of symptoms: At their worst the symptoms were mild in the emergency department the symptoms have improved. The patient has experienced similar episodes in the past, a few times. The patient has not recently seen a physician. Historical: - Allergies: 18:28 NSAIDS; aj - Home Meds: 18:47 insulin [Active]; lisinopril-hydrochlorothiazide Oral [Active]; mg2 - PMHx: 18:47 Diabetes - IDDM; Hypertension; mg2 - Immunization history:: Flu vaccine status is unknown. - Social history:: Smoking status: unknown. - Ebola Screening: : No symptoms or risks identified at this time. ROS: 20:35 Eyes: Negative for injury, pain, redness, and discharge, ENT: Negative for injury, jr8 pain, and discharge, Neck: Negative for injury, pain, and swelling, Cardiovascular: Negative for chest pain, palpitations, and edema, Respiratory: Negative for shortness of breath, cough, wheezing, and pleuritic chest pain, Abdomen/GI: Negative for abdominal pain, nausea, vomiting, diarrhea, and constipation, Back: Negative for injury and pain, MS/Extremity: Negative for injury and deformity, Skin: Negative for injury, rash, and discoloration, Neuro: Negative for headache, weakness, numbness, tingling, and seizure. Exam: 20:35 Eyes: Pupils equal round and reactive to light, extra-ocular motions intact. Lids and jr8 lashes normal. Conjunctiva and sclera are non-icteric and not injected. Cornea within normal limits. Periorbital areas with no swelling, redness, or edema. ENT: Nares patent. No nasal discharge, no septal abnormalities noted. Tympanic membranes are normal and external auditory canals are clear. Oropharynx with no redness, swelling, or masses, exudates, or evidence of obstruction, uvula midline. Mucous membranes moist. Neck: Trachea midline, no thyromegaly or masses palpated, and no cervical lymphadenopathy. Supple, full range of motion without nuchal rigidity, or vertebral point tenderness. No Meningismus. Cardiovascular: Regular rate and rhythm with a normal S1 and S2. No gallops, murmurs, or rubs. Normal PMI, no JVD. No pulse deficits. Respiratory: Lungs have equal breath sounds bilaterally, clear to auscultation and percussion. No rales, rhonchi or wheezes noted. No increased work of breathing, no retractions or nasal flaring. Abdomen/GI: Soft, non-tender, with normal bowel sounds. No distension or tympany. No guarding or rebound. No evidence of tenderness throughout. Back: No spinal tenderness. No costovertebral tenderness. Full range of motion. Skin: Warm, dry with normal turgor. Normal color with no rashes, no lesions, and no evidence of cellulitis. MS/ Extremity: Pulses equal, no cyanosis. Neurovascular intact. Full, normal range of motion. Neuro: Awake and alert, GCS 15, oriented to person, place, time, and situation. Cranial nerves II-XII grossly intact. Motor strength 5/5 in all extremities. Sensory grossly intact. Cerebellar exam normal. Normal gait. Vital Signs: 18:28 BP 156 / 71; Pulse 80; Resp 18; Temp 98.4; Pulse Ox 97% on R/A; Weight 113.4 kg; Height aj 5 ft. 7 in. (170.18 cm); 19:59 BP 131 / 57; Pulse 70; Resp 18; Temp 98; Pulse Ox 100% on R/A; Pain 0/10; mg2 18:28 Body Mass Index 39.16 (113.40 kg, 170.18 cm) MDM: 18:50 Patient medically screened. [facility] 20:35 Data reviewed: vital signs, nurses notes, lab test result(s), and as a result, I will [facility] discharge patient. Data interpreted: Pulse oximetry: on room air is 100 %. Interpretation: normal. Counseling: I had a detailed discussion with the patient and/or guardian regarding: the historical points, exam findings, and any diagnostic results supporting the discharge/admit diagnosis, lab results, the need for outpatient follow up, a family practitioner, to return to the emergency department if symptoms worsen or persist or if there are any questions or concerns that arise at home. Response to treatment: the patient's symptoms have resolved after treatment. ED course: Patient ate while in ED. Blood sugar has stabilized. Will d/c home to f/u with PCP . 08/26 18:53 Order name: Glucose, Ancillary Testing; Complete Time: 19:15 [facility] 08/26 18:53 Order name: Glucose, Ancillary Testing; Complete Time: 19:15 [facility] 08/26 18:29 Order name: IV; Complete Time: 18:30 08/26 19:15 Order name: Diet Ada 2000 Sen; Complete Time: 19:15 [facility] Administered Medications: 18:30 Drug: D50W 50 ml Route: IVP; Site: right antecubital; 19:20 Follow up: Response: No adverse reaction; Marked relief of symptoms mg2 Point of Care Testing: Blood Glucose: 18:28 Blood Glucose: 43 mg/dL; 18:51 Blood Glucose: 166 mg/dL; [facility] 20:41 Blood Glucose: 213 mg/dL; mg2 Ranges: Critical Glucose Levels:Adult <50 mg/dl or >400 mg/dl <40 mg/dl or >180 mg/dl Disposition: 08/27 07:27 Co-signature as Attending Physician, Juan Carlos Becerra MD I agree with the assessment and kdr plan of care. Disposition: 08/26/18 20:38 Discharged to Home. Impression: Hypoglycemia, unspecified. - Condition is Stable. - Discharge Instructions: Hypoglycemia, Blood Glucose Monitoring, Adult. - Medication Reconciliation Form, Thank You Letter, Antibiotic Education, Prescription Opioid Use form. - Follow up: Private Physician; When: 2 - 3 days; Reason: Recheck today's complaints, Continuance of care, Re-evaluation by your physician. - Problem is new. - Symptoms have improved. Signatures: Dispatcher [employer] Ambar Camarena RN RN aj Rittger, Kevin, MD MD [facility] Sesar Arnett PA PA jr8 Cruz Machuca RN RN mg2 Corrections: (The following items were deleted from the chart) 08/26 20:55 20:38 08/26/2018 20:38 Discharged to Home. Impression: Hypoglycemia, unspecified. mg2 Condition is Stable. Forms are Medication Reconciliation Form, Thank You Letter, Antibiotic Education, Prescription Opioid Use. Follow up: Private Physician; When: 2 - 3 days; Reason: Recheck today's complaints, Continuance of care, Re-evaluation by your physician. Problem is new. Symptoms have improved. jr8
== END 2018-08-26 20:55 | disposition home or self-care (01) ==
LOC: ER 18:11
DX: E11.649 Type 2 diabetes mellitus with hypoglycemia without coma (principal); I10 Essential (primary) hypertension; Z79.4 Long term (current) use of insulin; Z88.6 Allergy status to analgesic agent
CPT/HCPCS: 82962; 96374; 99284

== ENCOUNTER 2023-11-08 11:37 | Emergency (ER) | payer OTHER ==
[2023-11-08 12:08] LABS: Absolute Eosinophils 0.1 K/uL (0-0.5); Absolute Lymphocytes (CBC) 1.2 K/uL (0.7-4.9); Absolute Monocytes 0.4 K/uL (0.1-1.3); Absolute Neutrophil 4.2 K/uL (1.8-8.0); Basophils % 0.6 % (0-1.3); Eosinophils % 1.8 % (0-4.4); Hematocrit 42.2 % (39.6-49.0); Hemoglobin 13.5 g/dL (13.6-17.9); Lymphocytes % 21.1 % (15.3-44.8); MCH 28.7 pg (27.0-35.0); MCV 89.8 fL (80-100); MPV 7.8 fL (7.6-11.3); Monocytes % 6.1 % (3.3-12.3); Neutrophils % 70.4 % (41.7-73.7); Platelets 207 thou/uL (152-406)
[2023-11-08 12:27] LABS: ALT/SGPT 24 U/L (16-61); AST/SGOT 21 U/L (15-37); Albumin 3.2 g/dL (3.4-5.0); Albumin/Globulin Ratio 0.7 (1.1-1.8); Alkaline Phosphatase 106 U/L (45-117); Anion Gap 8.6 mEq/L (5.0-15.0); BUN Blood Urea Nitrogen 20 mg/dL (7-18); Bicarbonate 27 mEq/L (21-32); Bilirubin Total 0.3 mg/dL (0.2-1.0); Globulin 4.9 g/dL (2.3-3.5); Glomerular Filtration Rate 44 ml/min (=/>90); Glucose Level 193 mg/dL (74-106); Magnesium 2.6 mg/dL (1.6-2.4); Potassium 4.6 mEq/L (3.5-5.1); Protein, Total 8.1 g/dL (6.4-8.2); Sodium Level 140 mEq/L (136-145)
[2023-11-08 12:34] LABS: Bilirubin Direct < 0.2 mg/dL (0-0.2); Bilirubin Indirect, Calculated 0.1 mg/dL (0.2-0.8); Troponin High Sensitivity < 3.0 pg/mL (<58.9)
--- NOTE | 2023-11-08 13:02 | RAD REPORT ---
EXAM DESCRIPTION: Mandie Single View11/08/2023 12:44 pm CLINICAL HISTORY: Syncope COMPARISON: 2018 FINDINGS: The lungs appear clear of acute infiltrate. The heart is normal size IMPRESSION: No acute abnormalities displayed
--- NOTE | 2023-11-08 13:06 | EDPHYS ---
Physician Documentation [facility] Name: Carloz Hughes Age: 83 yrs Sex: Male : 1940 Arrival Date: 11/08/2023 Time: 11:37 Bed 5 Private MD: ED Physician Richard Young HPI: 11/07 12:57 This 83 yrs old Black Male presents to ER via EMS with complaints of Syncope. rt 12:57 Patient with history of diabetes presents to the ED following syncopal event. Patient rt was in the line at a bank prolonged period of time, when he lost consciousness, was reportedly helped to the ground and no reported trauma to the head. They seem that the patient was hypoglycemic they gave him sugar, had return to baseline mental status. EMS then arrived, states that the blood sugar was about 100 at that time. Patient states he is currently asymptomatic. Denies other acute complaints, symptoms are in severity, no other aggravating or alleviating factors.. Historical: - Allergies: 11:42 NSAIDS; hb - Home Meds: 11:42 insulin [Active]; lisinopril-hydrochlorothiazide Oral [Active]; hb - PMHx: 11:42 Diabetes - IDDM; Hypertension; hb - Immunization history:: Adult Immunizations up to date. - Infectious Disease History:: Denies. - Social history:: Smoking status: Patient denies any tobacco usage or history of. - Family history:: not pertinent. ROS: 12:57 Constitutional: Negative for fever, chills, and weight loss, Cardiovascular: Negative rt for chest pain, palpitations, and edema, Respiratory: Negative for shortness of breath, cough, wheezing, and pleuritic chest pain, Abdomen/GI: Negative for abdominal pain, nausea, vomiting, diarrhea, and constipation, MS/Extremity: Negative for injury and deformity, Skin: Negative for injury, rash, and discoloration, 12:57 Neuro: Positive for syncope, Negative for altered mental status, Exam: 12:57 Constitutional: This is a well developed, well nourished patient who is awake, alert, rt and in no acute distress. Head/Face: Normocephalic, atraumatic. Chest/axilla: Normal chest wall appearance and motion. Nontender with no deformity. No lesions are appreciated. Cardiovascular: Regular rate and rhythm with a normal S1 and S2. No gallops, murmurs, or rubs. Normal PMI, no JVD. No pulse deficits. Respiratory: Lungs have equal breath sounds bilaterally, clear to auscultation and percussion. No rales, rhonchi or wheezes noted. No increased work of breathing, no retractions or nasal flaring. Abdomen/GI: Soft, non-tender, with normal bowel sounds. No distension or tympany. No guarding or rebound. No evidence of tenderness throughout. Skin: Warm, dry with normal turgor. Normal color with no rashes, no lesions, and no evidence of cellulitis. MS/ Extremity: Pulses equal, no cyanosis. Neurovascular intact. Full, normal range of motion. Neuro: Awake and alert, GCS 15, oriented to person, place, time, and situation. Cranial nerves II-XII grossly intact. Motor strength 5/5 in all extremities. Sensory grossly intact. Cerebellar exam normal. Normal gait. 12:57 ECG was reviewed by the Attending Physician. Vital Signs: 11:41 BP 109 / 68; Pulse 69; Resp 15; Temp 97.8; Pulse Ox 100% on R/A; Pain 0/10; hb 12:40 BP 90 / 65; Pulse 72; Resp 17; Pulse Ox 99% ; rs5 13:24 BP 102 / 68; Pulse 74; Resp 16; Pulse Ox 99% ; ko1 11:41 Pain Scale: Adult hb MDM: 11:41 Patient medically screened. rt 13:35 Differential Diagnosis: Dysrhythmia, dehydration, hypoglycemia. Data reviewed: vital rt signs, nurses notes, lab test result(s), EKG, radiologic studies. Consideration of Admission/Observation Escalation of care including admission/observation considered. Suspect hypoglycemic episode as patient received sugar with improvement of mental status prior to EMSs evaluation, he is asymptomatic in the ED with unremarkable labs, and unchanged EKG. No indications for mission at this time, patient stable for outpatient care.. Independent interpretation of the following test(s) in the Emergency Department X-Ray: My interpretation is No consolidation seen on interpretation of x-ray images. Test considered but Not performed: CT: No head trauma, denies headache, CT scan of the head is not indicated. Care significantly affected by the following chronic conditions: Diabetes. Counseling: I had a detailed discussion with the patient and/or guardian regarding the historical points, exam findings, and any diagnostic results supporting the discharge/admit diagnosis, lab results, radiology results, the need for outpatient follow up, to return to the emergency department if symptoms worsen or persist or if there are any questions or concerns that arise at home. Response to treatment: the patient's symptoms have resolved after treatment. 11/07 11:41 Order name: Basic Metabolic Panel; Complete Time: 12:39 rt 11/07 11:41 Order name: CBC with Diff; Complete Time: 12:39 rt 11/07 11:41 Order name: LFT's; Complete Time: 12:39 rt 11/07 11:41 Order name: Magnesium; Complete Time: 12:39 rt 11/07 11:41 Order name: Troponin HS; Complete Time: 12:39 rt 11/07 11:41 Order name: XRAY Chest (1 view); Complete Time: 13:05 rt 11/07 11:41 Order name: Cardiac monitoring; Complete Time: 11:42 rt 11/07 11:41 Order name: EKG - Nurse/Tech; Complete Time: 11:42 rt 11/07 11:41 Order name: IV Saline Lock; Complete Time: 11:56 rt 11/07 11:41 Order name: Labs collected and sent; Complete Time: 11:56 rt 11/07 11:41 Order name: O2 Per Protocol; Complete Time: 11:42 rt 11/07 11:41 Order name: O2 Sat Monitoring; Complete Time: 11:43 rt EC:57 Rate is 69 beats/min. Rhythm is regular, 1st Degree Block with No ectopy, Right bundle rt branch block. Left axis deviation noted. MI interval is prolonged at 230 msec. QRS interval is normal. QT interval is normal. No Q waves. Administered Medications: No medications were administered Point of Care Testing: Blood Glucose: 13:25 Blood Glucose: 197 mg/dL; ko1 Ranges: Critical Glucose Levels:Adult <50 mg/dl or >400 mg/dl <40 mg/dl or >180 mg/dl Disposition Summary: 11/08/23 13:05 Discharge Ordered Notes: Location: Home rt Problem: new rt Symptoms: are resolved rt Condition: Stable rt Diagnosis - Syncope rt Followup: rt - With: Private Physician - When: 2 - 3 days - Reason: Discharge Instructions: - Discharge Summary Sheet rt - Hypoglycemia rt - Syncope rt Forms: - Medication Reconciliation Form rt - Antibiotic Education rt - Prescription Opioid Use rt - Patient Portal Instructions rt - Leadership Thank You Letter rt Signatures: Dispatcher [employer] Alis Moyer RN RN Richard Young MD MD rt Corrections: (The following items were deleted from the chart) 11:43 11:42 Allergies: NSAIDS (Non-Steroidal Anti-Inflamma; hb hb
--- NOTE | 2023-11-08 13:06 | ER ---
Nurse's Notes [facility] Name: Carloz Hughes Age: 83 yrs Sex: Male : 1940 Arrival Date: 11/08/2023 Time: 11:37 Bed 5 Private MD: Diagnosis: Syncope Presentation: 11/07 11:41 Chief complaint: EMS states: Syncopal episode while standing in line at bank. Sugar hb packet administered by bystanders, original BGL 130, pt confused and diaphoretic. Coronavirus screen: At this time, the client does not indicate any symptoms associated with coronavirus-19. Ebola Screen: No symptoms or risks identified at this time. Initial Sepsis Screen: Does the patient meet any 2 criteria? No. Patient's initial sepsis screen is negative. Does the patient have a suspected source of infection? No. Patient's initial sepsis screen is negative. Risk Assessment: Do you want to hurt yourself or someone else? Patient reports no desire to harm self or others. Onset of symptoms was November 08, 2023. 11:41 Method Of Arrival: EMS: [facility] 11:41 Acuity: EWA 3 hb Triage Assessment: 13:25 Neuro: Reports. ko1 Historical: - Allergies: 11:42 NSAIDS; hb - Home Meds: 11:42 insulin [Active]; lisinopril-hydrochlorothiazide Oral [Active]; hb - PMHx: 11:42 Diabetes - IDDM; Hypertension; hb - Immunization history:: Adult Immunizations up to date. - Infectious Disease History:: Denies. - Social history:: Smoking status: Patient denies any tobacco usage or history of. - Family history:: not pertinent. Screenin:41 [facility] ED Fall Risk Assessment (Adult) History of falling in the last 3 months, rs5 including since admission No falls in past 3 months (0 pts) Confusion or Disorientation No (0 pts) Intoxicated or Sedated No (0 pts) Impaired Gait No (0 pts) Mobility Assist Device Used No (0 pt) Altered Elimination No (0 pt) Score/Fall Risk Level 0 - 2 = Low Risk Oriented to surroundings, Maintained a safe environment. Abuse screen: Denies threats or abuse. Nutritional screening: No deficits noted. Tuberculosis screening: No symptoms or risk factors identified. Assessment: 11:41 General: Appears in no apparent distress. comfortable, Behavior is calm, cooperative. rs5 Pain: Denies pain. Neuro: Level of Consciousness is awake, alert, obeys commands, Oriented to person, place, time, situation. Cardiovascular: Patient's skin is warm and dry. Rhythm is. Respiratory: Airway is patent Respiratory effort is even, unlabored, Respiratory pattern is regular, symmetrical. 11:41 GI: Abdomen is round non-distended, Abd is soft and non tender X 4 quads. : No signs rs5 and/or symptoms were reported regarding the genitourinary system. EENT: No signs and/or symptoms were reported regarding the EENT system. Derm: Skin is intact, Skin is pink, warm \T\ dry. Musculoskeletal: Range of motion: intact in all extremities. 12:41 Reassessment: Patient and/or family updated on plan of care and expected duration. Pain rs5 level reassessed. Patient is alert, oriented x 3, equal unlabored respirations, skin warm/dry/pink. 13:18 Reassessment: Patient and/or family updated on plan of care and expected duration. Pain rs5 level reassessed. Patient is alert, oriented x 3, equal unlabored respirations, skin warm/dry/pink. Vital Signs: 11:41 BP 109 / 68; Pulse 69; Resp 15; Temp 97.8; Pulse Ox 100% on R/A; Pain 0/10; hb 12:40 BP 90 / 65; Pulse 72; Resp 17; Pulse Ox 99% ; rs5 13:24 BP 102 / 68; Pulse 74; Resp 16; Pulse Ox 99% ; ko1 11:41 Pain Scale: Adult hb ED Course: 11:40 Patient arrived in ED. hb 11:41 Richard Young MD is Attending Physician. rt 11:41 Patient has correct armband on for positive identification. Placed in gown. Bed in low rs5 position. Call light in reach. Side rails up X2. 11:41 No provider procedures requiring assistance completed. rs5 11:42 Triage completed. hb 11:43 Arm band placed on. hb 11:56 Carlos Alberto Sanchez, RN is Primary Nurse. rs5 11:56 Inserted saline lock: 22 gauge in right antecubital area, using aseptic technique. rs5 Blood collected. Flushed with 10 mL NS. 12:44 XRAY Chest (1 view) In Process Unspecified. EDMS 13:24 Provided Education on: labs. ko1 13:24 IV discontinued, intact, bleeding controlled, No redness/swelling at site. Pressure ko1 dressing applied. Administered Medications: No medications were administered Medication: 12:40 VIS not applicable for this client. rs5 Point of Care Testing: Blood Glucose: 13:25 Blood Glucose: 197 mg/dL; ko1 Ranges: Outcome: 13:05 Discharge ordered by MD. rt 13:24 Discharged to home ambulatory, with family, ko1 13:24 Condition: stable 13:24 Discharge instructions given to patient, family, Instructed on discharge instructions, follow up and referral plans. Demonstrated understanding of instructions, follow-up care, 13:26 Patient left the ED. ko1 Signatures: Dispatcher [employer] EDMS Alis Castro RN RN hb Mary Jane Dawn RN RN ko1 Richard Young MD MD rt Carlos Alberto Sanchez RN RN rs5 Corrections: (The following items were deleted from the chart) 11:43 11:42 Allergies: NSAIDS (Non-Steroidal Anti-Inflamma; hb hb
[2023-11-08 13:35] VITALS: TEMP 97.8
[2023-11-08 14:27] VITALS: BP 102/68; O2SAT 99
--- NOTE | 2023-11-11 12:46 | EKG ---
Test Date: 2023-11-08 Test Time: 11:45:06 [employer] Assessment: KRISTAL MEASUREMENT RESULTS: Intervals: Rate: 69 [place]: 228 QRSD: 144 QT: 410 QTc: 439 [place]: P: 48 [place]: 228 QRS: -32 T: 17 INTERPRETIVE STATEMENTS: Sinus rhythm with 1st degree AV block Left axis deviation Right bundle branch block Abnormal ECG Compared to ECG 08/21/2018 22:26:44 First degree AV block now present Left-axis deviation now present Atrial premature complex(es) no longer present Electronically Signed On 11-11-23 12:41:14 CDT by Chip Velez
--- NOTE | 2023-11-11 12:46 | EKG ---
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
== END 2023-11-08 13:26 | disposition home or self-care (01) ==
LOC: ER 11:37
DX: R55 Syncope and collapse (principal); E11.9 Type 2 diabetes mellitus without complications; Z79.4 Long term (current) use of insulin; I10 Essential (primary) hypertension
CPT/HCPCS: 36415; 71045; 80048; 80076; 83735; 84484; 85025; 93005; 99284